=== PATIENT | male | born 1965 | race Caucasian/White ===

== ENCOUNTER → 2019-03-29 09:48 | Outpatient (CLI) | payer OTHER, SELFPAY ==
--- NOTE | 2019-03-29 | DI.MRI.S_ITS ---
PROCEDURE: MR LUMBAR SPINE WO CON INDICATIONS: Low back pain TECHNIQUE: Noncontrast sagittal T1 spin echo and T2 fast echo, sagittal STIR, axial T1 and T2 fast spin echo through the lumbar spine. In cases with scoliosis, additional coronal T2 fast spin echo may be performed. COMPARISON: [facility] [place], MR, MR LUMBAR SPINE WO CON, 12/25/2016, 14:33. [facility] [place], CR, XR LUMBAR SPINE 2 OR 3 VIEWS, 06/09/2018, 13:59. FINDINGS: Image quality: Excellent. Alignment and Curvature: 5 lumbar type vertebral bodies are present by plain film. Alignment is normal. Bone Marrow: Marrow is of normal overall signal. No acute vertebral body compression fractures. Moderate reactive signal within the endplates adjacent to the through L4 intervertebral disc. Mild reactive signal within the endplates adjacent to T11-T12, T12-L1, L1-L2, L2-L3, L4-L5, and L5-S1 intervertebral discs. Left L4-L5 hemilaminotomy. Spinal Cord: Conus medullaris terminates at the upper L1 level. Visualized cord demonstrates normal signal and size. Paraspinous Soft Tissues: No paravertebral masses. L1-L2: Mild disc height loss and desiccation. Mild diffuse disc bulge with small superimposed right posterior lateral protrusion. Mild facet and ligament flavum hypertrophy. Mild epidural lipomatosis. Mild canal stenosis. Mild right greater than left foraminal stenosis. No change. L2-L3: Mild disc desiccation. Mild diffuse disc bulge. Mild facet and ligamentum flavum hypertrophy. Mild epidural lipomatosis. Mild canal stenosis. Mild bilateral foraminal stenosis. No change. L3-L4: Severe disc height loss and desiccation. Mild facet and ligament flavum hypertrophy. Mild epidural lipomatosis. Moderate canal stenosis. Moderate subarticular foraminal stenosis bilaterally. No change. L4-L5: Mild disc height loss. Moderate disc desiccation. Mild diffuse disc bulge with a small superimposed broad-based left posterior lateral protrusion. Moderate canal stenosis. Mild bilateral foraminal stenosis. Compression of the left S1 nerve root within the lateral recess, new since the prior examination. L5-S1: Mild disc height loss. Moderate disc desiccation. Mild diffuse disc bulge. Mild bilateral facet hypertrophy. Moderate canal stenosis. Mild bilateral foraminal stenosis. No change. IMPRESSION: 1. Multilevel degenerative disc and facet disease, as well as ligamentum flavum hypertrophy and epidural lipomatosis. 2. Multilevel canal stenoses, worst at L3-L4, L4-L5, and L5-S1, where there are moderate canal stenoses present. 3. Multilevel foraminal stenoses, worst at L3-L4, where there are moderate foraminal stenoses present. 4. Compression of the left S1 nerve root within the lateral recess at the L4-L5 disc space level. Recommend correlation with clinical symptoms to ascertain relevance of this finding. 5. Postsurgical sequelae at L4-L5. Dictated by: Jimmy Dey M.D. on 03/29/2019 at 11:33 Approved by: Jimmy Dey M.D. on 03/29/2019 at 11:40
== END ==
PROVIDERS: Family Provider Family Medicine; PCP Family Medicine; Visit Provider Orthopaedic Surgery Orthopaedic Surgery of the Spine
DX: M54.5 Low back pain (principal); M51.36 Other intervertebral disc degeneration, lumbar region; M51.37 Other intervertebral disc degeneration, lumbosacral region; M48.061 Spinal stenosis, lumbar region without neurogenic claudication; M48.07 Spinal stenosis, lumbosacral region; E88.2 Lipomatosis, not elsewhere classified
CPT/HCPCS: 72148

== ENCOUNTER → 2020-03-18 06:42 | Outpatient (CLI) | payer OTHER, SELFPAY | PROVIDERS: Family Provider Family Medicine; Referring Provider Nurse Practitioner Family; Visit Provider Nurse Practitioner Family | DX: R10.30 Lower abdominal pain, unspecified (principal); Z53.20 Procedure and treatment not carried out because of patient's decision for unspecified reasons ==